=== PATIENT | female | born 1995 | race African-American/Black ===

== ENCOUNTER 2020-11-30 13:32 | Emergency (ER) | payer SELFPAY ==
[2020-11-30] MEDS ORDERED: Fluorescein Opthalmic Strip ONE (14:49)
[2020-11-30] MEDS ORDERED: Proparacaine 0.5% Opth 15 ML BOT ONE (14:49)
[2020-11-30] MEDS ORDERED: Boostrix 0.5 ML (Tdap) VIAL ONE (15:48)
== END 2020-11-30 16:02 | disposition home or self-care (01) ==
LOC: ERS 13:32
DX: T15.92XA Foreign body on external eye, part unspecified, left eye, initial encounter (principal); X58.XXXA Exposure to other specified factors, initial encounter
CPT/HCPCS: 90715; 99283